=== PATIENT | female | born 2000 | race Caucasian/White ===

== ENCOUNTER 2024-06-12 12:08 | Outpatient (OUT) | payer OTHER, SELFPAY ==
[2024-06-13 04:09] LABS: FSH 7.3 mIU/mL (.); Luteinizing Hormone(LH) 1.8 mIU/mL (.)
[2024-06-13 05:07] LABS: Hepatitis B Surf Ab Quant <3.5 mIU/mL (Immunity>10)
[2024-06-14 14:11] LABS: QuantiFERON-TB Gold Plus Negative (Negative)
== END 2024-06-12 12:09 | disposition home or self-care (01) ==
LOC: LAB 12:08
PROVIDERS: PCP Family Medicine; Visit Provider Family Medicine
DX: N94.6 Dysmenorrhea, unspecified (principal); Z11.59 Encounter for screening for other viral diseases; Z11.1 Encounter for screening for respiratory tuberculosis
CPT/HCPCS: 36415; 83001; 83002; 86317; 86480

== ENCOUNTER 2024-08-19 14:49 | Outpatient (OUT) | payer OTHER, SELFPAY ==
--- OUTSIDE RECORDS SUMMARY | 2024-08-19 14:52 | XMS_ITS | Clinical Summary ---
[facility] Organization [facility] Address [id number] [place] [address] Care Team Providers Care Machine Icer Name Role Phone Unavailable Primary Care Provider Unavailabl e Social History Tobacco Use Types Packs/Day Years Used Date Smoking Tobacco: Never Assessed Comments Unknown Sex and Gender Information Value Date Recorded Sex Assigned at Not on file Legal Sex Female 9:48 PM EDT Gender Identity Not on file Sexual Orientation Not on file Plan of Treatment Not on file Medical Devices Not on file
--- OUTSIDE RECORDS SUMMARY | 2024-08-19 14:52 | XMS_ITS | Clinical Summary ---
Author Organization [facility] Address [address] [place] [address] Care Team Providers Care Marketing Services Specialist Name Role Phone Alireza Sanabria MD Primary Care Provider [phone] Allergies No known active allergies Medications Ibuprofen 200 mg capIndications:Hi p pain,Hip impingement syndrome,Groin injury Take 200 mg by mouth as needed. Active Active Problems Problem Noted Date Diagnosed Date Hip pain 02/16/2012 Social History Tobacco Use Types Packs/Day Years Used Date Smoking Tobacco: Never Assessed Comments Unknown Sex and Gender Information Value Date Recorded Sex Assigned at Not on file Legal Sex Female 8:20 AM EST Gender Identity Not on file Sexual Orientation Not on file Plan of Treatment Health Maintenance Due Date Last Done Comments Peds To Adult Transition Initial Discussion 2012 Peds To Adult Transition Annual Assessment 2014 HPV Vaccine (1 - 3-dose series) 06/29/2015 Anxiety Screening 2018 Depression Screening 2018 HIV Screening 2018 Hepatitis C Screening 2018 DTaP,Tdap,Td Vaccine (1 - Tdap) 06/29/2019 Hepatitis B Vaccine (1 of 3 - 19+ 3-dose series) 06/28 Cervical Cancer Screening 2021 Covid-19 Vaccine (2023- season) 2023 Influenza Vaccine (#1) 2024 Insurance BLUE CARD PPO OOS Care Teams Marketing Services Specialist Relationship Specialty Start Date End Date Alireza Sanabria MD PCP - General Family Medicine 02/16/12
--- OUTSIDE RECORDS SUMMARY | 2024-08-19 14:52 | XMS_ITS | Encounter Summary ---
Author Organization [facility] Address [address] [place] [address] Care Team Providers Care Shipboard Intelligence Analyst Name Role Phone Alireza Sanabria MD Primary Care Provider [phone] Encounter Details Date Type Department Care Team (Late st Contact Info) Description 04/17/2024 Abstract [facility] 112 [facility] 110 [place] [id number] Alireza Sanabria MD 112 [facility] [address] [place] [address] Social History Tobacco Use Types Packs/Day Years Used Date Smoking Tobacco: Never Smokeless Tobacco: Never Alcohol Use Standard Drinks/Week Comments Not Currently 0 (1 standard drink = 0.6 oz pur e alcohol) B1300 Health Literacy Answer Date Recor ded How often do you need to hav e someone help you when you read instructions, pamphlets, or other written material from your doctor or pharmacy? Patient declines to respond 01/11/2024 Social Connection and Isolat ion Panel [NHANES] Answer Date Recorded In a typical week, how many times do you talk on the phone with family, friends, or neighbors? Once a week 01/11/2024 How often do you get togethe r with friends or relatives? More than three times a week 01/11/2024 How often do you attend chur ch or catholic services? Never 01/11/2024 Active Member of Clubs or Organizations Not on f ile 01/11/2024 Attends Club or Organization Meetings Not on smui e 01/11/2024 Marital Status Not on file 01/11/2024 AUDIT-C Answer Date Recorded Q1: How often do you have a drink containing alc ohol? Monthly or less 01/11/2024 Q2: How many drinks containi ng alcohol do you have on a typical day when you are drinking? 1 or 2 01/11/2024 Q3: How often do you have si x or more drinks on one occasion? Never 01/11/2024 Overall Financial Resource Strain (CARDIA) Answe r Date Recorded How hard is it for you to pa y for the very basics like food, housing, medical care, and heating? Not hard at all 01/11/2024 Exercise Vital Sign Answer Date Recorde d On average, how many days pe r week do you engage in moderate to strenuous exercise (like a brisk walk)? 7 days Minutes of Exercise per Session Not on file 01/11/2024 Hunger Vital Sign Answer Date Recorded Within the past 12 months, y ou worried that your food would run out before you got the money to buy more. Never true 01/11/20 24 Within the past 12 months, t he food you bought just didn't last and you didn't have money to get more. Never true 01/11/2024 PRAPARE - Transportation Answer Date Re corded In the past 12 months, has l ack of transportation kept you from medical appointments or from getting medications? No 06/2023 In the past 12 months, has l ack of transportation kept you from meetings, work, or from getting things needed for daily living? No 01/11/2024 Housing Stability Vital Sign Answer Ti e Recorded In the last 12 months, was t here a time when you were not able to pay the mortgage or rent on time? No 01/11/2024 Number of Times Moved in the Last Year Not on fi le 01/11/2024 At any time in the past 12 m [facility], were you homeless or living in a residential (including now)? No 01/11/2024 Comments No Sex and Gender Information Value Date Recorded Sex Assigned at Not on file Legal Sex Female 6:56 PM EDT Gender Identity Not on file Sexual Orientation Not on file documented as of this encounter Plan of Treatment Upcoming Encounters Date Type Department Care Team (Late st Contact Info) Description 08/20/2024 2:15 PM EDT Office Visit [facility] [address] [address] Jennifer Oates DO [address] [phone] Encounter for gynecological examination without abnormal finding (Primary Dx); Screening for malignant neoplasm of cervix; Encounter for surveillance of contraceptive pills documented as of this encounter Visit Diagnoses Not on filedocumented in this encounter Care Teams Shipboard Intelligence Analyst Relationship Specialty Start Date End Date Alireza Sanabria MD 112 [facility] [address] [place] [address] PCP - General Family Medicine 08/25/22 documented as of this encounter
--- OUTSIDE RECORDS SUMMARY | 2024-08-19 14:52 | XMS_ITS | Data Portability ---
Author Organization [facility] [place] [address] Assessment No assessment recorded. Plan of Treatment Reminders Order Date Submit Date Provider Last Modified By Organization Details Last Modified Time Details Appointments None record ed. Lab None record ed. Referral None record ed. Procedures None record ed. Surgeries None record ed. Imaging None record ed. Medication Orders None record ed. Patient TargetsNo targets recorded. Patient InstructionsNo instructions recorded. Reason for Referral None Reported. Problems No Known Problems Medical Equipment None Reported. Allergies No known drug allergies Medications Not known to be on any medication Vitals Date Recorded Body height Body mass index (BMI) Body mass index (BMI) [Percentile] Per age and sex Body weight Body temperature Heart rate Oxygen saturation Oxygen saturation in Arterial blood by Pulse oximetry Systolic And Diastolic Provider Name and Address Organization Details Last Updated DateTime 1 170.18 cm 24.2 kg/m2 73 % 87735.6 7 g 97.9 [degF] 90 /min 95 % 95 % 120/68 mm[Hg] Torrie Kovacs CMA [facility] 1 11:05:29 Date Recorded Body height Body temperature Body mass index (BMI) Body mass index (BMI) [Percentile] Per age and sex Body weight Heart rate Oxygen saturation Oxygen saturation in Arterial blood by Pulse oximetry Systolic And Diastolic Provider Name and Address Organization Details Last Updated DateTime 1 170.18 cm 98.2 [degF] 24.4 kg/m2 74 % 49894.4 1 g 67 /min 97 % 97 % 100/70 mm[Hg] JUANJO Booker [facility] 1 13:09:43 Social History Question Answer Notes LastModified by Organizat ion Details LastModified Time Tobacco Smoking Status Never Smoker Torrie Kovacs, DISPLAY TRIMMER null, [place] [facility] 09/17/2020 11:06:37 What Was The Date Of Your Most Recent Tobacco Screening? 09/17/2020 [email or web address] Information not available 09/17/2020 Sex: Unknown Functional Status None recorded. Mental Status None recorded. Family History Relationship Description Onset Age of this Age Resolved Age Notes LastModified by Organization Details LastModified Time Father No current problems or disability [email or web address] Not available 09/17 11:06:29 Mother No current problems or disability [email or web address] Not available 09/17 11:06:29 Medical History No medical history recorded. Gynecological HistoryNo gynecological history recorded. Obstetrics History GPAL:G 0 P 0 0 0 0 Past Encounters Encounter ID Performer Location Encounter Start Date Encounter Closed Date Diagnosis/Indication Diagnosis SNOMED-CT Code Diagnosis ICD10 Code Diagnosis Note [id number] Karl Warren MD [facility] [address] [place] [address] 09/17/2020 10:52:04 09/18/2020 17:30:18 Concussion injury of brain 506590276 S06.0X0A 1. concussion 2. 15 minutes biking today3. hold off on academic accomodati ons4. maybe quick resolution here5. impact today6. f/u monday if needed [id number] Karl Warren MD [address] [place] [address] 09/22/2020 13:05:30 09/22/2020 13:25:56 Concussion injury of brain 228783288 S06.0X0A 1. concussion 2. may finish RTP3. no academic accomodati ons4. take impact one more time Health Concerns Section Related Observation LastModified by Organization Detai ls LastModified Time None Recorded Concern Status LastModified by Organization Details LastModified Time None Recorded Advance Directives Directive None Recorded Payers Insurance Date Sequence Insurance Name Policy Number Policy Mcelroy Covered Member ID Mcelroy Member ID Guarantor Name 09/28/2020 1 [facility] [id number] Alexis Antonio [id number] Alexis Antonio 09/22/2020 2 [employer] Alexis Antonio [id number] Alexis Antonio 09/17/2020 1 [place] [id number] Tabatha Antonio [id number] Alexis Antonio Notes Date Note Type Note Provider Name and Address Organization Details Recorded Time 09/17/2020 text/html Date of Concussi on: free kicks at soccer practicedoesn't remember it allshoved from behindgirl defending her and fell into her knee too2 days agopositive amnesia sleep- improvedthinking- fairmood- okayphysical- okay concussion- firstsophomore yearwants to be a doctorher aunt is a PAmajor is bio and chemistry ft no therapy as childno hx of mood d/o or add she is from [place], [place]. likes silvia. Karl Warren MD [address], [place], [address], [facility] 09/17/2020 11:35:24 09/22/2020 text/html concussion yesterday was first full day of practice. tired thinking goodmood goodsleep normalphysical no headaches Karl Warren MD [address], [place], [address], [facility] 09/22/2020 13:20:27 OBGyn Episode No OBEpisode recorded.
--- OUTSIDE RECORDS SUMMARY | 2024-08-19 14:52 | XMS_ITS | Encounter Summary ---
Author Organization [facility] Address [address] [place] [address] Care Team Providers Care Assistant County Engineer Name Role Phone Alireza Sanabria MD Primary Care Provider [phone] Encounter Details Date Type Department Care Team (Late st Contact Info) Description 01/23/2024 Abstract [facility] 112 [facility] 110 [place] [id number] Alireza Sanabria MD 112 [facility] 110 [place] [address] Social History Tobacco Use Types Packs/Day Years [...] often do you attend chur ch or jew services? Never 01/11/2024 Active Member of Clubs or Organizations Not on f ile 01/11/2024 Attends Club or Organization Meetings Not on sumi e 01/11/2024 Marital Status Not on file [...] any time in the past 12 m [facility], were you homeless or living in a detention (including now)? No 01/11/2024 Comments No Sex [...] EDT Office Visit [facility] [address] [address] Jennifer Oates DO [address] [phone] Encounter for gynecological examination without abnormal finding (Primary Dx); Screening for malignant neoplasm of cervix; Encounter for surveillance of contraceptive pills documented as of this encounter Visit Diagnoses Not on filedocumented in this encounter Care Teams Assistant County Engineer Relationship Specialty Start Date End Date Alireza Sanabria MD 112 [facility] 110 [place] [address] PCP - General Family Medicine 08/25/22 documented as of this encounter
--- OUTSIDE RECORDS SUMMARY | 2024-08-19 14:52 | XMS_ITS | Encounter Summary ---
Author Organization [facility] Address [address] [place] [address] Care Team Providers Care Case Investigator Name Role Phone Alireza Sanabria MD Primary Care Provider Encounter Details Date Type Department Care Team (Late st Contact Info) Description 08/13/2024 Telephone [facility] 112 [facility] 110 [place] [address] [place] Smith, [place] 112 [facility] 110 [place] [address] Social History Tobacco Use Types Packs/Day Years [...] often do you attend chur ch or scientology services? Never 01/11/2024 Active Member of Clubs [...] in the past 12 m [facility], were you homeless or living in a fpc (including now)? No 01/11/2024 Comments No Sex and Gender Information Value Date Recorded Sex Assigned at Not on file Legal Sex Female 6:56 PM EDT Gender Identity Not on file Sexual Orientation Not on file documented as of this encounter Miscellaneous Notes * Telephone Encounter - Candie Christianson LPN - 08/13/2024 3:31 PM EDT Mom, called asking for another Hep B antibody lab and faxed to [facility]. Faxed and mother has been notified. documented in this encounter Plan of Treatment Upcoming Encounters Date Type Department Care Team (Late st Contact Info) Description 08/20/2024 2:15 PM EDT Office Visit [facility] [address] [facility] [address] [facility] [address] [phone] Jennifer Oates, DO [address] [address] Encounter for gynecological examination without abnormal finding (Primary Dx); Screening for malignant neoplasm of cervix; Encounter for surveillance of contraceptive pills Scheduled Orders Name Type Priority Associated Diagnoses Orde r Schedule Hepatitis B surface antibody Lab Routine Immunity status testing Expected: 08/13/2024 (Approximate), Expires: 08/13/2025 documented as of this encounter Visit Diagnoses Diagnosis Immunity status testing Antibody response examination Encounter for gynecological examination without abnormal finding- Primary Screening for malignant neoplasm of cervix Screening for malignant neoplasm of the cervix Encounter for surveillance of contraceptive pills documented in this encounter Care Teams Case Investigator Relationship Specialty Start Date End Date Alireza Sanabria MD [address] [place] [address] [address] [place] [address] PCP - General Family Medicine 08/25/22 documented as of this encounter
--- OUTSIDE RECORDS SUMMARY | 2024-08-19 14:52 | XMS_ITS | Encounter Summary ---
Author Organization [facility] Address [address] [place] [address] Care Team Providers Care Wheat Cleaner Name Role Phone Alireza Sanabria MD Primary Care Provider [phone] Encounter Details Date Type Department Care Team (Late st Contact Info) Description 07/29/2022 Abstract [facility] 112 [facility] 110 [place] [address] Alireza Sanabria MD 112 [facility] 110 [place] [address] Social History Tobacco Use Types Packs/Day Years Used Date Smoking Tobacco: Never Assessed Comments Unknown Sex and Gender Information Value Date Recorded Sex Assigned at Not on file Legal Sex Female 6:56 PM EDT Gender Identity Not on file Sexual Orientation Not on file documented as of this encounter Plan of Treatment Upcoming Encounters Date Type Department Care Team (Late Contact Info) Description 08/20/2024 2:15 PM EDT Office Visit [facility] [address] [phone] Jennifer Oates DO [address] [address] Encounter for gynecological examination without abnormal finding (Primary Dx); Screening for malignant neoplasm of cervix; Encounter for surveillance of contraceptive pills documented as of this encounter Visit Diagnoses Not on filedocumented in this encounter Care Teams Wheat Cleaner Relationship Specialty Start Date End Date Alireza Sanabria MD [address] [place] [address] PCP - General Family Medicine 08/25/22 documented as of this encounter
--- OUTSIDE RECORDS SUMMARY | 2024-08-19 14:52 | XMS_ITS | Clinical Summary ---
Author Organization [facility] Address [address] [place] [address] Care Team Providers Care Service Greeter Name Role Phone Alireaz Sanabria MD Primary Care Provider [phone] Allergies No known active allergies Medications drospirenone-ethiny l estradiol ([place]urel, [place]) 3-0.03 MG tabletIndications:E ncounter for repeat prescription of oral contraceptives TAKE 1 TABLET BY MOUTH EVERY DAY 84 tablet 3 4 Active amphetamine-dextroa mphetamine XR (Adderall XR) 30 MG 24 hr capsuleIndications: Attention deficit hyperactivity disorder (ADHD), combined type Take 1 capsule (30 mg) by mouth Daily Do not crush or chew. 30 capsule 4 Active buPROPion XL (Wellbutrin XL) 150 MG 24 hr tabletIndications:G eneralized anxiety disorder Take 1 tablet (150 mg) by mouth in the morning. Do not crush, chew, or split.. 100 tablet 3 4 Active pseudoephedrine-DM- GG 60-15-400 MG tabletIndications:U RI with cough and congestion Take 1 tablet by mouth every 6 (six) hours if needed (Cough) 28 tablet 4 Active Active Problems Problem Noted Date Diagnosed Date Attention deficit hyperactiv ity disorder (ADHD), combined type 09/26/2023 Generalized anxiety disorder 09/01/2022 Dysmenorrhea 08/24/2022 Seasonal allergic rhinitis 08/24/2022 Hip pain 02/16/2012 Encounters Date Type Department Care Team Description 08/13/2024 Telephone [facility] [address] [place] [address] Angeles Smith PA 06/12/2024 Clinisync Result Encounter [facility] External Department Unsolicited Alireza Sanabria MD 06/07/2024 Telephone [facility] [address] [facility] [address] [place] [address] Alireza Sanabria MD 06/04/2024 Telephone [facility] [address] [place] [address] Angeles Smith PA from Last 3 Months Immunizations Immunization Administration Dates Next Due DTP 10/03/2001,2000 DTaP 09/26/2006 DTaP, Unspecified 01/03/2001,2000 Hep A, Adult 03/29/2022 Hep B, Adolescent or Pediatric 01/03/2001,2000,2000 HiB, unspecified 10/03/2001, 1,2000,08/31 IPV 09/26/2006 Influenza Whole 01/16/2007,11/30/2004 Influenza, live, intranasal 12/12/2007, 6 Influenza, seasonal, injecta ble, preservative free 01/03/2024,11/02/2009,12/29/2008 MMR 10/03/2001 MMRV 09/26/2006 Meningococcal MCV4P 10/04/2018 Pfizer Purple Cap SARS-CoV-2 Vaccination 02/13/2021,07/17/2020 Pneumococcal Conjugate PCV 7 01/03/2001,09/01/19 01 Pneumococcal Polysaccharide PPSV23 07/06/2001, Polio, Unspecified 10/03/2001,2000, 001 Typhoid, ViCPs 03/29/2022 Varicella 07/06/2001 Family History Medical History Relation Name Comments Melanoma Neg Hx Relation Name Status Comments Brother x2 Father Alive Mother Alive Sister x1 Social History Tobacco Use Types Packs/Day Years Used Date Smoking Tobacco: Never Smokeless Tobacco: Never Tobacco Cessation:Counseling Given: Not Answered Alcohol Use Standard Drinks/Week Comments Not Currently [...] often do you attend chur ch or orthodoxy services? Never 01/11/2024 Active Member of [employer] [...] any time in the past [address] [facility], were you homeless or living in a residential (including now)? No 01/11/2024 Comments No Sex and Gender Information Value Date Recorded Sex Assigned at Not on file Legal Sex Female 6:56 PM EDT Gender Identity Not on file Sexual Orientation Not on file Last Filed Vital Signs Vital Sign Reading Time Taken Comments Blood Pressure 118/84 09/26/2023 10:08 AM EDT Pulse 92 09/26/2023 10:08 AM EDT Temperature - - Respiratory Rate 16 09/26/2023 10:08 AM EDT Oxygen Saturation 98% 09/26/2023 10:08 AM EDT Inhaled Oxygen Concentration - - Weight 75.9 kg (167 lb 6.4 oz) 09/26/2023 10:08 AM EDT Height 172.7 cm (5' 8 ) 09/26/2023 10:08 AM EDT Body Mass Index 25.45 09/26/2023 10:08 AM EDT Plan of Treatment Upcoming Encounters Date Type Department Care Team (Late st Contact Info) Description 08/20/2024 2:15 PM EDT Office Visit [facility] [address] [place] [address] [address] Jennifer Oates DO [address] [address] Encounter for gynecological examination without abnormal finding (Primary Dx); Screening for malignant neoplasm of cervix; Encounter for surveillance of contraceptive pills Health Maintenance Due Date Last Done Comments Influenza Vaccine (#1) 2024 4, 12/22/2020, 10/31/2019, Additional history exists Procedures Procedure Name Priority Date/Time Associated Diagnosis Comments QUANTIFERON-TB GOLD PLUS Routine 06/12/2024 12:20 PM EDT HEPATITIS B SURF AB QUANT Routine 06/12/2024 12:20 PM EDT ALL FOLLICLE STIMULATING HORMONE Routine 06/12/2024 12:20 PM EDT ALL LUTEINIZING HORMONE Routine 06/12/2024 12:20 PM EDT from Last 3 Months Results * QUANTIFERON-TB GOLD PLUS (06/12/2024 12:20 PM EDT) Pathologist [facility] QUANTIFERON INCUBATION . [facility] Comment: Incubation performed. Reference Range: . QUANTIFERON-TB GOLD PLUS Negative Negative [facility]H Comment: No response to M tuberculosis antigens detected. Infection with M tuberculosis is unlikely, but high risk individuals should be considered for additional testing (ATS/IDSA/CDC Clinical Practice Guidelines, 2017). The reference range is an Antigen minus Nil result of <0.35 IU/mL. Chemiluminescence immunoassay methodology Performed at: [facility] [id number] Back Seam Stitcher: Gustavo Dawkins PhD, Phone: [phone] QUANTIFERON CRITERIA Comment . [facility] Comment: QuantiFERON-TB Gold Plus is a qualitative indirect test for M tuberculosis infection (including disease) and is intended for use in conjunction with risk assessment, radiography, and other medical and diagnostic evaluations. The QuantiFERON-TB Gold Plus result is determined by subtracting the Nil value from either TB antigen (Ag) value. The Mitogen tube serves as a control for the test. QUANTIFERON TB1 AG VALUE 0.05 . IU/mL [facility] QUANTIFERON TB2 AG VALUE 0.06 . IU/mL [facility] QUANTIFERON NIL VALUE 0.05 . IU/mL [facility] QUANTIFERON MITOGEN VALUE >10.00 . IU/mL [facility] 06/12/2024 12:2 0 PM EDT 06/12/2024 1:38 PM EDT Narrative CLINISYNC - 06/14/2024 2:11 PM EDT us Alireza Sanabria MD LAB BLOOD ORDERABLES Final Resul t Performing Organization Address [facility] de Phone Number [facility] * (ABNORMAL) HEPATITIS B SURF AB QUANT (06/12/2024 12:20 PM EDT) Pathologist [facility] HEPATITIS B SURF AB QUANT <3.5(A) Immunity>1 0 mIU/mL [facility] Comment: Status of Immunity Anti-HBs Level Inconsistent with Immunity 0.0 - 10.0 Consistent with Immunity >10.0 Performed at: [address] [id number] Back Seam Stitcher: Gustavo Dawkins PhD, Phone: [phone] 06/12/2024 12:2 0 PM EDT 06/12/2024 12:26 PM EDT Narrative CLINISYNC - 06/13/2024 5:07 AM EDT Alireza Sanabria MD LAB BLOOD ORDERABLES Final Resul t Performing Organization Address [facility] de Phone Number [facility] * ALL LUTEINIZING HORMONE (06/12/2024 12:20 PM EDT) Pathologist [facility] LUTEINIZING HORMONE(LH) 1.8 . mIU/mL [facility] Comment: Adult Female Range Follicular phase 2.4 - 12.6 Ovulation phase 14.0 - 95.6 Luteal phase 1.0 - 11.4 Postmenopausal 7.7 - 58.5 06/12/2024 12:2 0 PM EDT 06/12/2024 12:26 PM EDT Narrative CLINISYNC - 06/13/2024 5:07 AM EDT Alireza Sanabria MD [facility] CLAREISYMS Final Result Performing Organization Address [facility] de Phone Number [facility] * ALL FOLLICLE STIMULATING HORMONE (06/12/2024 12:20 PM EDT) Pathologist [facility] FSH 7.3 . mIU/mL [facility] Comment: Adult Female Range Follicular phase 3.5 - 12.5 Ovulation phase 4.7 - 21.5 Luteal phase 1.7 - 7.7 Postmenopausal 25.8 - 134.8 Performed at: [address] [id number] Back Seam Stitcher: Gustavo Dawkins PhD, Phone: [phone] 06/12/2024 12:2 0 PM EDT 06/12/2024 12:26 PM EDT Narrative CLINISYNC - 06/13/2024 5:07 AM EDT Alireza Sanabria MD [facility] Final [facility] Last 3 Mon[facility] Insurance [facility] Care Teams Service Greeter Relationship Specialty Start Date End Date Alireza Sanabria MD [address] [place] [id number] PCP - General Family Medicine 08/25/22
--- OUTSIDE RECORDS SUMMARY | 2024-08-19 14:52 | XMS_ITS | Clinical Summary ---
Author Organization [facility] Address [address] [place] [address] Phone Care Team Providers Care Content Analyst Name Role Phone Alireza Sanabria MD Primary Care Provider [phone] Social History Tobacco Use Types Packs/Day Years Used Date Smoking Tobacco: Never Assessed Comments Unknown Sex and Gender Information Value Date Recorded Sex Assigned at Not on file Legal Sex Female 6:50 PM EST Gender Identity Not on file Sexual Orientation Not on file Plan of Treatment Not on file Care Teams Content Analyst Relationship Specialty Start Date End Date Alireza Sanabria MD [address] [facility] [address] [place] [address] PCP - General 12/04/12
== END 2024-08-19 14:50 | disposition home or self-care (01) ==
PROVIDERS: PCP Family Medicine; Visit Provider Physician Assistant
DX: Z01.84 Encounter for antibody response examination (principal)
CPT/HCPCS: 36415; 86317